=== PATIENT | female | born 1945 | race Caucasian/White ===

== ENCOUNTER 2023-05-18 10:21 | Outpatient (OUT) | payer MEDICARE, SELFPAY ==
[2023-05-18 12:47] LABS: Free T4 1.08 ng/dL (0.76-1.46)
[2023-05-18 12:51] LABS: Thyroid Stimulating Hormone 3.078 uIU/mL (0.358-3.740)
== END 2023-05-18 10:22 | disposition home or self-care (01) ==
PROVIDERS: PCP Family Medicine; Visit Provider Family Medicine
DX: E03.9 Hypothyroidism, unspecified (principal)
CPT/HCPCS: 36415; 84439; 84443

== ENCOUNTER 2024-10-24 18:29 | Emergency (ER) | payer MEDICARE, SELFPAY ==
[2024-10-24 18:34] VITALS: BP 122/59; PULSE 112; TEMP 37.4; O2SAT 96; BMI 26.9
--- NOTE | 2024-10-24 18:45 | ECG_ITS ---
[facility] Test Date: 2024-10-24 Pat Name: SHONDA VILLANUEVA Department: Room: - Gender: Female Inseamer: : 1945 Requested By: SHERYL RING Order Number: [id number] Reading MD: SAULO DE JESUS Measurements Intervals [place] Rate: 107 P: 30 MT: 152 QRS: 16 QRSD: 72 T: 59 QT: 322 QTc: 385 Interpretive Statements 1120 Sinus tachycardia [address] depression [address] & [place] abnormality 9140 abnormal rhythm ECG No previous ECG available for comparison Electronically Signed On 10-24-2024 20:29:44 EST by SAULO DE JESUS
--- NOTE | 2024-10-24 18:46 | ED.GENADUL1 ---
HPI HPI - General Adult General Chief complaint: Abdominal Pain Stated complaint: nausea, vomiting Time Seen by Provider: 10/24/24 18:36 Source: patient Mode of arrival: ambulance History of Present Illness HPI narrative: Patient is a 79-year-old female who presents to the emergency department by ambulance for the evaluation of abdominal cramping, vomiting and diarrhea that began last night. Patient states she had persistent vomiting overnight which caused her to feel dizzy. She did have a headache and feel foggy earlier but states this is mostly resolved. EMS gave Zofran and the patient states that she feels tremendously better after this medication. She has no significant abdominal pain at this time. She has not had any recent travel or antibiotics. No sick contacts in the home. Related Data Previous Rx's ?Medication ?Instructions ?Recorded hyoscyamine sulfate 0.125 mg 0.125 mg PO Q6H PRN abdominal pain 10/24/24 tablet (Levsin) #12 tabs ondansetron 4 mg disintegrating 4 mg PO Q6H PRN nausea and 10/24/24 tablet vomiting #12 tabs Allergies Allergy/AdvReac Type Severity Reaction Status Date / Time Unable to Assess Allergy Verified 10/24/24 18:33 Opioid HPI Opioid Management Most Recent Opioid Data: Last Pain Scale 0 10/24/24 19:19 10/24/24 Last ED Pain Assessment 10/24/24 19:19 Review of Systems ROS Constitutional Reports: chills; Denies: fever Cardiovascular Denies: chest pain Respiratory Denies: shortness of breath or cough Gastrointestinal Reports: abdominal pain, nausea, vomiting and diarrhea Integumentary/Breast Denies: rash Neurological Denies: numbness in extremities or weakness in extremities Hematologic/Lymphatic Denies: easy bruising or easy bleeding PFSH PFSH Social History Little interest or pleasure in doing things: not at all Feeling down, depressed, or hopeless: not at all Exam Narrative Exam Narrative: Gen.: Awake, alert, in no distress Head: Normocephalic, atraumatic ENT: Moist mucous membranes Respiratory: No respiratory distress, lungs clear bilaterally Cardio: Regular rate and rhythm Gastrointestinal: Abdomen is soft, nondistended and nontender to palpation Extremities: Moves extremities equally Psych: Normal mood and affect Neuro: No focal neuro deficit Skin: Warm, dry, intact Constitutional Vital Signs, click to edit/add: Last Vital Signs Temp 99.4 F 10/24/24 18:34 Pulse 101 H 10/24/24 20:26 Resp 16 10/24/24 20:26 BP 153/66 H 10/24/24 20:26 Pulse Ox 96 10/24/24 20:26 O2 Del Method Room Air 10/24/24 20:26 Course Vital Signs Vital signs: Vital Signs Temperature 99.4 F 10/24/24 18:34 Pulse Rate 112 H 10/24/24 18:34 Respiratory Rate 20 10/24/24 18:34 Blood Pressure 122/59 10/24/24 18:34 Pulse Oximetry 96 10/24/24 18:34 Oxygen Delivery Method Room Air 10/24/24 18:34 Temperature 99.4 F 10/24/24 18:34 Pulse Rate 101 H 10/24/24 20:26 Respiratory Rate 16 10/24/24 20:26 Blood Pressure 153/66 H 10/24/24 20:26 Pulse Oximetry 96 10/24/24 20:26 Oxygen Delivery Method Room Air 10/24/24 20:26 Medical Decision Making MDM Narrative Medical decision making narrative: Patient on arrival states she feels much better. She was given IV fluids and labs, CT of the head and abdomen and pelvis were ordered with respiratory swabs. She had no episodes of emesis in the emergency department. She states she feels 100% better and would like to be discharged at this time because her ride can only take her home now. She understands the risks of and disability by leaving the emergency department AGAINST MEDICAL ADVICE and understands she can return at any time. She is hemodynamically stable with abdomen soft and benign. Levsin and Zofran given for home. Follow-up with PCP. SUPERVISED APC VISIT, PHYSICIAN ATTESTATION: Based on the medical record the care appears appropriate. ? Medical Records Medical records reviewed: Yes I reviewed the patient's medical records Lab Data Lab results reviewed: Yes I reviewed the patient's lab results Labs: Lab Results 10/24/24 Range/Units 18:35 WBC 8.5 (4.0-11.0) 10^3/uL RBC 4.59 (4.20-5.40) 10^6/uL Hgb 13.7 (12.0-16.0) g/dL Hct 41.0 (36.0-48.0) % MCV 89.3 (81.0-99.0) fL MCH 29.8 (26.7-34.0) pg MCHC 33.4 (29.9-35.2) g/dL RDW 13.0 (11.0-15.0) % Plt Count 293 (150-450) 10^3/uL MPV 9.6 (9.5-13.5) fL Seg Neuts % (Manual) 88.0 H (43.0-75.0) Lymphocytes % (Manual) 5.0 L (20.5-60.0) % Atypical Lymphs % (Man) 2.0 % Monocytes % (Manual) 5.0 (1.7-12.0) % Eosinophils % (Manual) 0.0 L (0.9-7.0) % Basophils % (Manual) 0.0 L (0.2-2.0) % Neutrophils # (Manual) 7.48 H (1.4-6.5) 10^3/uL Lymphocytes # (Manual) 0.42 L (1.20-3.80) 10^3/uL Abs Atypical Lymphs Man 0.17 Monocytes # (Manual) 0.42 (0.30-0.80) 10^3/uL Eosinophils # (Manual) 0.00 (0.00-0.70) 10^3/uL Basophils # (Manual) 0.00 (0.00-0.10) 10^3/uL Toxic Granulation 2+ PT 10.4 (9.0-11.6) sec INR 0.98 Sodium 136 (136-145) mmol/L Potassium 3.9 (3.5-5.1) mmol/L Chloride 102 (98-107) mmol/L Carbon Dioxide 25.9 (21.0-32.0) mmol/L Anion Gap 12.0 BUN 23.0 H (7.0-18.0) mg/dL Creatinine 1.31 H (0.55-1.02) mg/dL Est GFR ( Amer) 48 L (>=60 mL/min/1.73m^2) Est GFR (Non-Af Amer) 39 L (>=60 mL/min/1.73m^2) BUN/Creatinine Ratio 17.6 Glucose 126 H (74-106) mg/dL Lactate 1.0 (0.4-2.0) mmol/L Calcium 8.9 (8.5-10.1) mg/dL Total Bilirubin 0.5 (0.2-1.0) mg/dL AST 14 L (15-37) U/L ALT 17 (14-59) U/L Alkaline Phosphatase 75 (46-116) U/L Troponin I High Sens 6.8 (4.0-51.3) pg/mL Total Protein 6.7 (6.4-8.2) g/dL Albumin 3.3 L (3.4-5.0) g/dL Globulin 3.4 g/dL Albumin/Globulin Ratio 1.0 Lipase 35.0 (16.0-77.0) U/L TSH 1.617 (0.358-3.740) uIU/mL Discharge Plan Discharge Stand Alone Forms: Portal Instructions Chief Complaint: Abdominal Pain Clinical Impression: Nausea vomiting and diarrhea Patient Disposition: Left Against Medical Advice Time of Disposition Decision: 19:55 Condition: Good Mode of Transportation: Private Vehicle Prescriptions / Home Meds: New hyoscyamine sulfate [Levsin] 0.125 mg tablet 0.125 mg PO Q6H PRN (Reason: abdominal pain) Qty: 12 0RF ondansetron 4 mg tablet,disintegrating 4 mg PO Q6H PRN (Reason: nausea and vomiting) Qty: 12 0RF Print Language: Jordanian Instructions: Acute Nausea and Vomiting (ED), Acute Diarrhea (ED) Referrals: Nika Slade MD [Primary Care Provider] - 1 week Discharge Date/Time: 10/24/24 20:26
[2024-10-24 18:51] LABS: Hemoglobin 13.7 g/dL (12.0-16.0); Mean Corpuscular HGB Conc 33.4 g/dL (29.9-35.2); Mean Corpuscular Hemoglobin 29.8 pg (26.7-34.0); Mean Corpuscular Volume 89.3 fL (81.0-99.0); Mean Platelet Volume 9.6 fL (9.5-13.5); Platelet Count 293 10^3/uL (150-450); Red Blood Count 4.59 10^6/uL (4.20-5.40); White Blood Count 8.5 10^3/uL (4.0-11.0)
[2024-10-24 19:04] LABS: INR 0.98; Prothrombin Time 10.4 sec (9.0-11.6)
[2024-10-24 19:07] LABS: Alanine Aminotransferase 17 U/L (14-59); Albumin Level 3.3 g/dL (3.4-5.0); Alkaline Phosphatase 75 U/L (46-116); Aspartate Amino Transferase 14 U/L (15-37); Atypical Lymphocytes Abs Man 0.17; BUN Creatinine Ratio 17.6; Bilirubin Total 0.5 mg/dL (0.2-1.0); Calcium 8.9 mg/dL (8.5-10.1); Carbon Dioxide 25.9 mmol/L (21.0-32.0); Chloride 102 mmol/L (98-107); Estimated GFR (African America 48 (>=60 mL/min/1.73m^2); Estimated GFR (Non-African Ame 39 (>=60 mL/min/1.73m^2); Globulin 3.4 g/dL; Glucose 126 mg/dL (74-106); Lymphocytes Absolute Manual 0.42 10^3/uL (1.20-3.80); Monocytes Absolute Manual 0.42 10^3/uL (0.30-0.80); Potassium 3.9 mmol/L (3.5-5.1); Segmented Neut Absolute Manual 7.48 10^3/uL (1.4-6.5); Sodium 136 mmol/L (136-145); Total Protein 6.7 g/dL (6.4-8.2); Toxic Granulation 2+
[2024-10-24] MEDS: 0.9 % SODIUM CHLORIDE 1,000 ML 999 ML IV (19:11)
[2024-10-24 19:15] LABS: Thyroid Stimulating Hormone 1.617 uIU/mL (0.358-3.740); Troponin I High Sensitivity 6.8 pg/mL (4.0-51.3)
[2024-10-24] MEDS: ONDANSETRON 4 MG RAPDIS TABLET SL (19:55)
[2024-10-24 20:26] VITALS: BP 153/66; PULSE 101; O2SAT 96
== END 2024-10-24 20:26 | disposition left against medical advice (07) ==
PROVIDERS: Physician Assistant; Emergency Provider Emergency Medicine; PCP Family Medicine
DX: R11.2 Nausea with vomiting, unspecified (principal); Z53.29 Procedure and treatment not carried out because of patient's decision for other reasons; R19.7 Diarrhea, unspecified; R10.9 Unspecified abdominal pain
CPT/HCPCS: 36415; 80053; 81001; 83605; 83690; 84443; 84484; 85007; 85027; 85610; 87804; 87811; 93005; 99285; Q0162